=== PATIENT | female | born 1945 | race Caucasian/White ===

== ENCOUNTER 2017-03-11 11:07 | Outpatient (CLI) | payer MEDICARE, OTHER ==
[2017-03-11 12:40] LABS: Bilirubin Negative (Negative); Blood, Urine Negative (Negative); Clarity Clear (Clear); Glucose, Urine (Dipstick) Negative (Negative); Leukocyte Negative (Negative); Nitrite Negative (Negative); Protein, Urine (Dipstick) Negative (Neg-Trace); Specific Gravity, Urine 1.015 (1.005-1.030); Urobilinogen 0.2 mg/dL (0.2-1.0)
[2017-03-11 12:48] LABS: ALT (SGPT) 40 U/L (8-55); AST (SGOT) 32 U/L (5-34); Albumin 3.8 g/dL (3.4-4.8); Alkaline Phosphatase 57 U/L (40-150); Anion Gap 16 mmol/L (10-20); BUN (Urea Nitrogen) 23 mg/dL (9.8-20.1); Bilirubin, Total 0.3 mg/dL (0.2-1.2); Calc. Creatinine Clearance 0 mL/min (70-130); Calcium 9.5 mg/dL (7.8-10.44); Carbon Dioxide 24 mmol/L (23-31); Cardiac Risk 3.5 (Less than 4.5); Chloride 104 mmol/L (98-107); Cholesterol 149 mg/dl (< 200 Desired); Estimated GFR-MDRD 77; Globulin 2.5 g/dL (2.4-3.5); Glucose 101 mg/dL (83-110); HDL Cholesterol 43 mg/dL (>60 Neg Risk); LDL Cholesterol, Calculated 79 mg/dL; Potassium 4.6 mmol/L (3.5-5.1); Protein, Total 6.3 g/dL (6.0-8.3); Sodium 139 mmol/L (136-145); Triglycerides 135 mg/dL (Less than 150)
[2017-03-11 14:04] LABS: #Basophils 0.2 thou/uL (0.0-0.2); #Eosinphils 0.6 thou/uL (0.0-0.7); #Lymphocytes 1.7 thou/uL (1.20-3.40); #Neutrophils 8.3 thou/uL (1.40-6.50); %Basophils 1.8 % (0.0-1.0); %Eosinophils 5.4 % (0.0-10.0); %Lymphocytes 14.5 % (21.0-51.0); %Monocytes 8.1 % (0.0-10.0); %Neutrophils 70.2 % (42.0-75.0); Hemoglobin 9.2 g/dL (12.0-16.0); MDiff Complete? YES; Mean Corpuscular HGB CONC 29.9 g/dL (32.0-36.0); Mean Corpuscular Hemoglobin 24.9 pg (27.0-31.0); Mean Corpuscular Volume 83.4 fl (81.0-99.0); Mean Platelet Volume 6.1 fL (7.4-10.4); Platelet Count 437 thou/uL (130-400); Red Blood Cell (RBC) Count 3.69 mill/uL (4.20-5.40); White Blood Cell (WBC) Count 11.8 thou/uL (4.8-10.8)
[2017-03-11 14:05] LABS: Hypochromia SLIGHT = 6-15 cells (100X) (0-5/hpf); PLT Morphology Comment Appears Increased
== END 2017-03-11 11:08 | disposition home or self-care (01) ==
LOC: NAVSJIPCSP 11:07
PROVIDERS: ATTEND Internal Medicine
DX: Z12.11 Encounter for screening for malignant neoplasm of colon (principal); I11.9 Hypertensive heart disease without heart failure; E78.5 Hyperlipidemia, unspecified; Z79.899 Other long term (current) drug therapy
CPT/HCPCS: 36415; 80053; 80061; 81003; 85025

== ENCOUNTER 2017-08-26 06:43 | Emergency (ER) | payer MEDICARE, OTHER ==
[2017-08-26] MEDS ORDERED: Ondansetron ODT 4 MG TAB ONE (06:56)
[2017-08-26] MEDS ORDERED: Sodium Chloride 0.9% 1,000 ML ONE (07:13)
[2017-08-26] MEDS ORDERED: Famotidine/PF 20 mg/2ml Vial ONE (07:13)
[2017-08-26] MEDS ORDERED: Ondansetron HCl/PF 4 MG/2 ML Vial ONE (07:13)
[2017-08-26 07:35] LABS: ALT (SGPT) 47 U/L (8-55); AST (SGOT) 39 U/L (5-34); Albumin 4.4 g/dL (3.4-4.8); Alkaline Phosphatase 72 U/L (40-150); Anion Gap 18 mmol/L (10-20); BUN (Urea Nitrogen) 32 mg/dL (9.8-20.1); Bilirubin, Total 0.4 mg/dL (0.2-1.2); Calc. Creatinine Clearance 0 mL/min (70-130); Calcium 10.1 mg/dL (7.8-10.44); Carbon Dioxide 23 mmol/L (23-31); Chloride 97 mmol/L (98-107); Estimated GFR-MDRD 65; Globulin 3.5 g/dL (2.4-3.5); Glucose 176 mg/dL (83-110); Protein, Total 7.9 g/dL (6.0-8.3); Sodium 134 mmol/L (136-145)
[2017-08-26 07:36] LABS: CKMB 1.9 ng/mL (0-6.6); Troponin I Less than 0.010 ng/mL (< 0.028)
[2017-08-26 07:37] LABS: #Basophils 0.1 thou/uL (0.0-0.2); #Monocytes 0.7 thou/uL (0.11-0.59); #Neutrophils 13.1 thou/uL (1.40-6.50); %Basophils 0.5 % (0.0-1.0); %Lymphocytes 6.4 % (21.0-51.0); %Monocytes 4.8 % (0.0-10.0); %Neutrophils 88.3 % (42.0-75.0); MDiff Complete? YES; Mean Corpuscular Volume 76.1 fl (81.0-99.0); Mean Platelet Volume 7.2 fL (7.4-10.4); Platelet Count 468 thou/uL (130-400); RBC Distribution Width 17.7 % (11.5-14.5); Red Blood Cell (RBC) Count 4.98 mill/uL (4.20-5.40); White Blood Cell (WBC) Count 14.8 thou/uL (4.8-10.8)
[2017-08-26 07:38] LABS: Anisocytosis SLIGHT = 6-15 cells (100X) (0-5/hpf); Microcytosis SLIGHT = 6-15 cells (100X) (0-5/hpf); PLT Morphology Comment Appears Increased
[2017-08-26] MEDS ORDERED: Metoclopramide HCl 10 MG/2 ML VIAL ONE (07:46)
[2017-08-26] MEDS ORDERED: Morphine 4 MG/ML Carpuject ONE (08:00)
--- NOTE | 2017-08-26 08:35 | RAD ---
KUB AND UPRIGHT: History: Abdominal pain. FINDINGS: There is air within mildly distended small bowel. There is also air within the colon. No signs of aldo e air. Post op cholecystectomy changes are seen. PA CHEST: Heart size is within normal limits. The aorta is tortuous. The lungs are clear of infiltrates. IMPRESSION: Findings suggesting a partial small bowel obstruction. CT may be helpful in further assessment. POS: [facility]
[2017-08-26] MEDS ORDERED: Iopamidol 370 76% 100 ML VIAL ONE (09:00)
--- NOTE | 2017-08-26 09:32 | CT ---
CT ABDOMEN AND PELVIS: 08/26/2017 HISTORY: Emesis. Epigastric pain. COMPARISON: None. TECHNIQUE: Serial axial CT imaging is obtained at 5 mm intervals, from the lung bases through the pubic symphysi s, with IV contrast. Coronal reformatted imaging obtained. FINDINGS: Lack of oral contrast limits detailed assessment of the bowel. The imaged lung bases appear grossly unremarkable. Cholecystectomy clips are present. No free intraperitoneal air or fluid is noted. The hepatic parenchyma is relatively hypodense, which may signify steatosis. No focal liver lesion i s evident. The spleen, pancreas, and adrenal glands appear unremarkable. Bilateral renal cysts are noted. Neither kidney appears obstructed. There is diverticulosis within the sigmoid colon with no evidence for diverticulitis. The entirety o f the colon is completely decompressed. There are multiple mildly dilated, fluid-filled loops of sma ll bowel seen throughout the abdomen/pelvis. There are numerous decompressed distal small bowel loop s noted within the right lower quadrant. These findings suggest significant small bowel obstruction, discrete transition point not visualized but likely within the right aspect of the lower abdomen/pel vis. No extraluminal gas or evidence of abscess. Small hiatal hernia suspected. Mild scattered atherosclerotic calcification of the abdominal aorta i s noted. No pelvic, retroperitoneal, or mesenteric adenopathy. There is mild inflammatory stranding involving the mesenteric fat of the right lower quadrant. The appendix appears unremarkable. Osseous structures demonstrate prominent lower lumbar spine facet hypertrophic change. IMPRESSION: 1. Evidence of small bowel obstruction with multiple dilated, fluid-filled proximal small bowel loop s and numerous decompressed small bowel loops in the right lower quadrant, suggesting a right lower q uadrant/mid right abdomen transition point. Mild associated inflammatory stranding noted within the right lower quadrant mesenteric fat, with no evidence for abscess or free intraperitoneal air. 2. Probable hepatic steatosis. 3. Sigmoid diverticulosis without evidence for diverticulitis. POS: [facility]
== END 2017-08-26 09:26 | disposition short-term general hospital (02) ==
LOC: NAV ERS 06:43
DX: K56.609 Unspecified intestinal obstruction, unspecified as to partial versus complete obstruction (principal); I10 Essential (primary) hypertension
CPT/HCPCS: 74022; 74177; 80053; 82553; 84484; 85025; 93005; 96361; 96372; 96374; 96375; J2270; J2405; J2765; J7050; Q0162; S0028

== ENCOUNTER 2023-08-21 11:24 | Outpatient (CLI) | payer MEDICARE, OTHER | END 2023-08-21 11:25 | disposition home or self-care (01) | LOC: NAV RAD 11:24 | PROVIDERS: ATTEND Family Medicine | DX: J40 Bronchitis, not specified as acute or chronic (principal) | CPT/HCPCS: 71046 ==